=== PATIENT | female | born 1945 | race Caucasian/White ===

== ENCOUNTER 2018-12-11 15:27 | Emergency (ER) | payer MEDICARE, OTHER ==
[2018-12-11 16:04] VITALS: BP 139/59
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
== END 2018-12-11 17:11 | disposition home or self-care (01) ==
LOC: UCEAST 15:27
DX: S20.20XA Contusion of thorax, unspecified, initial encounter (principal); W50.0XXA Accidental hit or strike by another person, initial encounter; Y92.9 Unspecified place or not applicable; E78.5 Hyperlipidemia, unspecified; I10 Essential (primary) hypertension; F41.9 Anxiety disorder, unspecified; F32.9 Major depressive disorder, single episode, unspecified; Z88.5 Allergy status to narcotic agent
CPT/HCPCS: 99201; G0463